=== PATIENT | male | born 1985 | race Caucasian/White ===

== ENCOUNTER 2021-03-31 12:29 | Emergency (ER) | payer OTHER ==
[~2021-03-31] VITALS: Ht 165.1 cm; Wt 54.4 kg
[2021-03-31 13:15] LABS: ABSOLUTE BASOPHILS 0.1 thou/uL (0.0-0.2); ABSOLUTE EOSINOPHILS 0.1 thou/uL (0.0-0.7); ABSOLUTE LYMPHOCYTES 1.8 thou/uL (0.8-5.3); ABSOLUTE MONOCYTES 0.6 thou/uL (0.0-1.2); BASOPHILS 0.8 %; EOSINOPHILS 1.4 %; HEMATOCRIT 43.8 % (42.0-52.0); HEMOGLOBIN 14.6 gm/dL (14.0-18.0); LYMPHOCYTES 21.1 %; MCHC 33.4 g/dL (28.0-37.0); MCV 92.9 fL (80.0-100.0); MONOCYTES 6.8 %; MPV 7.6 fl. (7.2-11.1); NUCLEATED RBCS 0 /100WBC; PLATELET COUNT* 237 thou/uL (150-400); POLYS 69.9 %; RBC 4.72 mil/uL (4.50-6.00); RDW-CV 13.4 % (10.5-14.5); WBC 8.6 thou/uL (4.0-11.0)
[2021-03-31 13:24] LABS: CALCIUM 8.9 mg/dL (8.5-10.1); POTASSIUM 4.5 mmol/L (3.5-5.1)
[2021-03-31 13:28] LABS: ALBUMIN 4.4 g/dL (3.4-5.0); TOTAL BILIRUBIN 0.4 mg/dL (<0.1-1.0); TOTAL PROTEIN 7.2 g/dL (6.4-8.2)
[2021-03-31] MEDS ORDERED: PERCOCET PO ×2 (13:43→17:39)
[2021-03-31 14:21] VITALS: BP 128/80
--- NOTE | 2021-04-01 11:23 | EKG ---
[place] [address] ELECTROCARDIOGRAM REPORT Name: MOISE KING Room: [facility]#: [id number] Admission: 03/31/21 Attend Phys: Discharge: 03/31/21 Date of : 83 Date of Service: 03/31/21 1310 Report #: [id number] THIS REPORT FOR: //name// [facility] ED Test Date: 2021-03-31 Test Time: 13:10:17 Pat Name: MOISE KING Department: Room: Gender: Cpa Tax: : 1985 Requested By: Jt Izaguirre Order Number: [id number] MD: Jeff Vernon Measurements Intervals [place] Rate: 74 P: 81 [place]: 130 QRS: 32 QRSD: 93 T: 41 QT: 371 QTc: 412 Interpretive Statements Sinus rhythm ST elev, probable normal early repol pattern No previous ECG available for comparison Electronically Signed On 04-01-2021 11:23:01 CDT by Jeff Vernon [email or web address] <ELECTRONICALLY SIGNED> By: Jeff Vernon MD, MERGED WITH [facility] 04/01/21 1123 1310 1310 Jeff Vernon MD, MERGED WITH [facility] /EPI
== END 2021-03-31 14:22 | disposition home or self-care (01) ==
LOC: M.ERS 12:29
PROVIDERS: Family Medicine
DX: S52.592A Other fractures of lower end of left radius, initial encounter for closed fracture (principal); T75.4XXA Electrocution, initial encounter; S00.83XA Contusion of other part of head, initial encounter; W11.XXXA Fall on and from ladder, initial encounter; Y93.89 Activity, other specified; Y92.89 Other specified places as the place of occurrence of the external cause; Y99.8 Other external cause status